=== PATIENT | male | born 1990 | race Caucasian/White ===

== ENCOUNTER 2016-12-12 16:17 | Emergency (ER) | payer SELFPAY ==
[2016-12-12 19:33] VITALS: BP 133/75
[2016-12-12] MEDS ORDERED: IBUPROFEN 400 MG TABLET PO ONE (19:39)
--- NOTE | 2016-12-12 19:46 | ERNOTE ---
Medical Problem HPI - Narrative Date of Service: 12/12/16 - General Chief Complaint: Flu Symptoms Time Seen by Provider: 12/12/16 19:39 Source: patient Exam Limitations: no limitations - Immun/Allergies/Home Medications Immunizations: IMMUNIZATION HX Immunizations Up to Date Yes History of Influenza Vaccine No Hx Pneumococcal Vaccination No Allergies/Adverse Reactions: Allergies No Known Allergies Allergy (Verified 12/12/16 16:31) Home Medications: HOME MEDICATIONS NK [No Home Medication] 09/04/16 [Last Taken Unknown] - History of Present History Narrative: Patient's been having cough and congestion for the past 2-3 days progressively getting worse also has sore throat and decreased appetite denies any abdominal pain chest pain or headache at this point in time. Date (Duration): 12/08/16 Timing: getting worse Severity: mild Review of Systems - Review of Systems Constitutional: Absent: recent illness, fever, chills, diaphoresis, weakness, fatigue Respiratory: Absent: shortness of breath, cough, orthopnea Cardiology: Absent: chest pain, palpitations, syncope Gastrointestinal/Abdominal: Absent: nausea, vomiting - His, diarrhea All Other Systems: All systems neg except as marked - Patient's Past Medical History Patient History - Medical: No pertinent hx, Other Patient History - Cardiac/Respiratory: No pertinent hx Patient History - Cancer: No Hx of Cancer Patient History - Surgical Procedures: Other Patient History - Other: None - Social History Living Situations: home Alcohol Use: none Drug Use: none - Immunizations Immunizations Up to Date: Yes Hx Pneumococcal Vaccination: No History of Influenza Vaccine: No Physical Exam - Physical Exam General Appearance: Present: wd/wn, alert, no apparent distress Ears, Nose, Throat: Present: normal ENT inspection, normal pharynx Neck: Present: normal inspection, nontender, supple Respiratory: Present: no respiratory distress, normal breath sounds, no accessory muscle use, chest nontender, lungs clear Cardiovascular/Chest: Present: regular rate, rhythm, no murmur, normal peripheral pulses Skin Exam: Present: normal color, warm/dry Lymphatic Exam: Present: no adenopathy ED Progress - Results and Orders Patient's Lab Results:: I have reviewed the patient's lab results. - Vital Signs Patient's Vital Signs:: I have reviewed the patient's vital signs. Vital Signs: Vital Signs 01/30/17 01/30/17 16:24 19:32 Temperature 38.5 C H 37.7 C H Pulse Rate 107 H 78 Respiratory 12 16 Rate Blood Pressure 132/65 133/75 O2 Sat by Pulse 99 98 Oximetry - Progress/Reassessment Chief Complaint: Flu Symptoms Progress:: Unchanged Progress Note-Subjective: 12/12/16 19:43 This fluid test and rapid strep tests were negative I do feel this still this is viral in nature located to push fluids and follow-up family doctor to 3 days Tylenol Motrin for fever and pain control - Transfer of Care Expected Disposition: Discharge Departure - Departure Clinical Impression: Flu syndrome Upper respiratory infection Qualifiers: URI type: acute pharyngitis Pharyngitis/tonsillitis etiology: other specified organisms Qualified Code(s): J02.8 - Acute pharyngitis due to other specified organisms Disposition: Home Follow Up Needed Condition: Stable Instructions: Influenza, Adult, [id number], Form - Excuse from Work, School, or Physical Activity, Pharyngitis, [id number]
[2016-12-12] MEDS ORDERED: IBUPROFEN 400 MG TABLET ONE (19:53)
== END 2016-12-12 20:00 | disposition home or self-care (01) ==
LOC: ER 16:17
DX: J11.1 Influenza due to unidentified influenza virus with other respiratory manifestations (principal)